=== PATIENT | male | born 1990 | race Caucasian/White ===

== ENCOUNTER → 2016-04-25 | Outpatient (CLI) | payer OTHER ==
[2016-04-25 14:49] LABS: BASO % 0.4 % (0.0-1.0); EOS # 0.1 K/mm3 (0.0-0.50); EOS % 1.1 % (0.0-3.0); LARGE UNSTAINED CELL # 0.1 K/mm3 (0.0-0.4); LARGE UNSTAINED CELL % 1.4 % (0.0-4.0); LYMPH # 1.6 K/mm3 (1.5-6.5); LYMPH % 26.4 % (24.0-44.0); MEAN CORPUSCULAR HEMOGLOBIN 30.5 pg (27.0-33.0); MEAN CORPUSCULAR HGB CONC 34.2 g/dl (32.0-36.5); MEAN CORPUSCULAR VOLUME 89.2 fl (80.0-96.0); MONO # 0.2 K/mm3 (0.0-0.8); MONO % 3.8 % (0.0-5.0); NEUTROPHILS # 4.1 K/mm3 (1.8-7.7); NEUTROPHILS % 66.9 % (36.0-66.0); PLATELET COUNT, AUTOMATED 316 k/mm3 (150-450); RED CELL DISTRIBUTION WIDTH 12.3 % (11.5-14.5); WHITE BLOOD COUNT 6.2 K/mm3 (4.0-10.0)
[2016-04-25 14:58] LABS: ALBUMIN 4.2 GM/DL (3.2-5.2); ALKALINE PHOSPHATASE 69 U/L (45-117); ALT/SGPT 22 U/L (12-78); ANION GAP 6 MEQ/L (8-16); AST/SGOT 10 U/L (15-37); BILIRUBIN,TOTAL 0.3 MG/DL (0.2-1.0); BLOOD UREA NITROGEN 20 MG/DL (7-18); CALCIUM LEVEL 8.8 MG/DL (8.5-10.1); CARBON DIOXIDE LEVEL 31 MEQ/L (21-32); CHLORIDE LEVEL 106 MEQ/L (98-107); CREATININE FOR GFR 0.89 MG/DL (0.70-1.30); GLOMERULAR FILTRATION RATE > 60.0 (>60); GLUCOSE, FASTING 100 MG/DL (70-105); POTASSIUM SERUM 4.2 MEQ/L (3.5-5.1); SODIUM LEVEL 143 MEQ/L (136-145); TOTAL PROTEIN 7.2 GM/DL (6.4-8.2)
[2016-04-27 13:57] LABS: CONTROL LINE INT CTR LINE PRESENT; HIV SCRN NEGATIVE (NEGATIVE); HIV SCRN1 NEGATIVE (NEGATIVE)
== END ==
LOC: M LAB 13:38
PROVIDERS: ATTEND Family Medicine
DX: R11.2 Nausea with vomiting, unspecified (principal)

== ENCOUNTER 2016-05-10 18:25 | Emergency (ER) | payer OTHER ==
[~2016-05-10] VITALS: Ht 182.9 cm; Wt 78.9 kg
[2016-05-10] MEDS ORDERED: DICY20TA11 (19:00)
[2016-05-10] MEDS ORDERED: MIRT15TA3 (19:00)
[2016-05-10] MEDS ORDERED: OMEP20CA3 (19:00)
[2016-05-10] MEDS ORDERED: NAPROXEN 250 MG TAB PO ONE (21:45)
[2016-05-10] MEDS ORDERED: PERC5TAB6 PO (22:17)
[2016-05-10] MEDS ORDERED: MOBI7.5T10 PO (23:21)
[2016-05-10 23:24] VITALS: BP 134/75
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
== END 2016-05-10 23:27 | disposition home or self-care (01) ==
LOC: M ED 19:44
DX: S62.307A Unspecified fracture of fifth metacarpal bone, left hand, initial encounter for closed fracture (principal); W22.09XA Striking against other stationary object, initial encounter; Y92.018 Other place in single-family (private) house as the place of occurrence of the external cause; Y93.89 Activity, other specified; Y99.8 Other external cause status; K21.9 Gastro-esophageal reflux disease without esophagitis; K58.9 Irritable bowel syndrome, unspecified; Z79.899 Other long term (current) drug therapy; F17.210 Nicotine dependence, cigarettes, uncomplicated

== ENCOUNTER 2016-06-19 16:38 | Emergency (ER) | payer OTHER ==
[~2016-06-19] VITALS: Ht 182.9 cm; Wt 78.9 kg
[~2016-06-19 16:38] MED LIST: DICY20TA11; MIRT15TA3; MOBI7.5T10 PO; OMEP20CA3; PERC5TAB6 PO
[2016-06-19 16:39] VITALS: BP 136/81
[2016-06-19] MEDS ORDERED: GABA-282 PO (16:54)
[2016-06-19] MEDS ORDERED: COLA100C3 PO (16:54)
[2016-06-19] MEDS ORDERED: METH40TA PO (16:54)
[2016-06-19] MEDS ORDERED: KEFL500C7 PO (17:12)
[2016-06-19 17:28] LABS: BASO % 0.2 % (0.0-1.0); EOS # 0.2 K/mm3 (0.0-0.50); EOS % 3.5 % (0.0-3.0); LARGE UNSTAINED CELL # 0.1 K/mm3 (0.0-0.4); LARGE UNSTAINED CELL % 2.1 % (0.0-4.0); LYMPH # 2.9 K/mm3 (1.5-6.5); LYMPH % 48.9 % (24.0-44.0); MEAN CORPUSCULAR HEMOGLOBIN 31.6 pg (27.0-33.0); MEAN CORPUSCULAR HGB CONC 35.2 g/dl (32.0-36.5); MEAN CORPUSCULAR VOLUME 89.7 fl (80.0-96.0); MONO # 0.3 K/mm3 (0.0-0.8); MONO % 4.2 % (0.0-5.0); NEUTROPHILS # 2.4 K/mm3 (1.8-7.7); NEUTROPHILS % 40.9 % (36.0-66.0); PLATELET COUNT, AUTOMATED 277 k/mm3 (150-450); RED CELL DISTRIBUTION WIDTH 12.3 % (11.5-14.5); WHITE BLOOD COUNT 5.9 K/mm3 (4.0-10.0)
[2016-06-20] MEDS ORDERED: KETO5OPD OS (12:20)
[2016-06-20] MEDS ORDERED: GENT3OPD OS (12:20)
== END 2016-06-19 17:39 | disposition home or self-care (01) ==
LOC: M ED 17:33
DX: L98.9 Disorder of the skin and subcutaneous tissue, unspecified (principal); J30.9 Allergic rhinitis, unspecified; Z79.899 Other long term (current) drug therapy; F17.210 Nicotine dependence, cigarettes, uncomplicated

== ENCOUNTER 2016-06-20 11:18 | Emergency (ER) | payer OTHER ==
[~2016-06-20] VITALS: Ht 182.9 cm; Wt 79.4 kg
[~2016-06-20 11:18] MED LIST changes: +COLA100C3 PO; +GABA-282 PO; +KEFL500C7 PO; +METH40TA PO
[2016-06-20 11:21] VITALS: BP 145/78
[2016-06-20] MEDS ORDERED: GENT3OPD OS (12:20)
[2016-06-20] MEDS ORDERED: KETO5OPD OS (12:20)
== END 2016-06-20 12:41 | disposition home or self-care (01) ==
LOC: M ED 12:37
DX: H10.89 Other conjunctivitis (principal); J30.9 Allergic rhinitis, unspecified; F19.21 Other psychoactive substance dependence, in remission; Z79.899 Other long term (current) drug therapy

== ENCOUNTER → 2016-08-22 | Outpatient (CLI) | payer OTHER ==
[~2016-08-22] MED LIST changes: -COLA100C3 PO; +COLA100C5 PO; +GENT3OPD OS; +KEFL500C17 PO; -KEFL500C7 PO; +KETO5OPD OS; +MOBI4TAB PO; -MOBI7.5T10 PO; +PERC5TAB12 PO; -PERC5TAB6 PO
== END ==
LOC: M WUC 14:22
PROVIDERS: ATTEND Surgery
DX: A51.9 Early syphilis, unspecified (principal)